=== PATIENT | female | born 1955 | race Caucasian/White ===

== ENCOUNTER 2017-03-02 06:09 | Day surgery (SDC) | payer MEDICAID ==
[~2017-03-02] VITALS: Ht 175.3 cm; Wt 156.5 kg
[~2017-03-02 06:09] MED LIST: ABI10 PO; ACET-787 PO; ALLO100T21 PO; ALPR0.5T2 PO; ASPI81CT89 PO; ATEN25TA7 PO; CALC0.5S6 PO; CONJ1TAB PO; DICL75EC11 PO; DOCU-246 PO; ERGO2000 PO; FERR325E14 PO; FURO40TA9 PO; GLIP5TER PO; ISOS30TE PO; LISI5TAB18 PO; ORE25 PO; PIOG45TA PO; SERT50TA PO
[2017-03-02] MEDS ORDERED: LIDOCAINE 2% 100 MG/5 ML UJET TP ONE (07:18)
[2017-03-02] MEDS ORDERED: LABETALOL 100 MG/20 ML VIAL ONE ×2 (09:44→09:45)
== END 2017-03-02 10:14 | disposition home or self-care (01) ==
LOC: MDS 06:09 → MMU 06:14 → MDS 10:14
PROVIDERS: ATTEND Internal Medicine Gastroenterology
DX: Z12.11 Encounter for screening for malignant neoplasm of colon (principal); I10 Essential (primary) hypertension; F32.9 Major depressive disorder, single episode, unspecified; E66.01 Morbid (severe) obesity due to excess calories; E11.9 Type 2 diabetes mellitus without complications; K64.9 Unspecified hemorrhoids; K57.30 Diverticulosis of large intestine without perforation or abscess without bleeding; Z98.890 Other specified postprocedural states; Z90.710 Acquired absence of both cervix and uterus; Z79.899 Other long term (current) drug therapy; Z79.82 Long term (current) use of aspirin
CPT/HCPCS: 45378; 82948; J3490